=== PATIENT | male | born 1980 | race African-American/Black ===

== ENCOUNTER 2025-05-08 18:22 | Emergency (ER) | payer OTHER ==
[~2025-05-08] VITALS: Ht 193 cm; Wt 117.9 kg
[2025-05-08] MEDS ORDERED: ONDANSETRON HCL 2 MG/ML VIAL IV ONE (19:30)
[2025-05-08] MEDS ORDERED: 0.9 % SODIUM CHLORIDE 1,000 ML IV ONE (19:30)
[2025-05-08] MEDS ORDERED: FAMOtidine 10 MG/ML (4ML VIAL) IV ONE (19:30)
[2025-05-08 20:10] LABS: BASO % 0.6 % (0.1-1.2); EOS # 0.10 (0.04-0.54); EOS % 1.6 % (0.7-7.0); LYMPH # 1.22 (1.18-3.74); LYMPH % 19.5 % (19.3-53.1); MEAN PLATELET VOLUME 9.20 fl (9.4-12.4); MONO # 0.56 (0.24-0.82); MONO % 8.9 % (4.7-12.5); NEUT # 4.30 (1.56-6.13); NEUT % 68.8 % (34.0-71.1); RED CELL DISTRIBUTION WIDTH 13.3 % (11.6-14.4)
[2025-05-08 20:45] LABS: ALT/SGPT 17.0 U/L (12-78); AST/SGOT 24.0 U/L (15-37); BILIRUBIN TOTAL 0.21 mg/dL (0.3-1.2); BUN CREA RATIO 12.0 (7.0-25.0); CREATININE SERUM 1.75 mg/dL (0.70-1.30); GFR 42.17; GLOBULINA 3.6 G/DL (2.4-3.5); GLUCOSE FASTING 129.0 mg/dL (65-100); OSMOLALITY SERUM 297.0 MOSM/KG (275-295)
== END 2025-05-09 00:59 | disposition home or self-care (01) ==
LOC: ER 18:22
PROVIDERS: General Practice
DX: R53.1 Weakness (principal); F12.929 Cannabis use, unspecified with intoxication, unspecified